=== PATIENT | male | born 1960 | race Caucasian/White ===

== ENCOUNTER 2017-07-16 14:57 | Emergency (ER) | payer MEDICARE, MEDICAID ==
[~2017-07-16] VITALS: Ht 177.8 cm; Wt 95.7 kg
[~2017-07-16 14:57] MED LIST: AMLO10TA59 PO; CLON-529 PO; DESV50TA3 PO; FENO145T25 PO; HYDR25TA4 PO; LORA0.5T PO; METO-395 PO; OMEG-107 PO; POTA10CA44 PO; TRAZ-146 PO; TRIF10TA PO; VALS320T13 PO
[2017-07-16 16:25] LABS: BASOPHILS # (AUTO) 0.1 X10'3 (0-0.2); BASOPHILS % (AUTO) 0.9 % (0-1); EOSINOPHILS # (AUTO) 0.1 X10'3 (0-0.9); EOSINOPHILS % (AUTO) 1.2 % (0-6); HEMATOCRIT 39.2 % (42.0-52.0); HEMOGLOBIN 13.6 g/dl (14.0-17.9); LYMPHOCYTES # (AUTO) 2.6 X10'3 (1.1-4.8); MEAN CORPUSCULAR HGB CONC 34.6 % (33.0-36.5); MEAN CORPUSCULAR VOLUME 86.8 FL (78-98); MEAN PLATELET VOLUME 8.4 FL (7.4-10.4); MONOCYTES # (AUTO) 0.6 X10'3 (0-0.9); MONOCYTES % (AUTO) 8.2 % (2-12); NEUTROPHILS # (AUTO) 4.1 X10'3 (1.8-7.7); NEUTROPHILS % (AUTO) 54.7 % (42-75); PLATELET COUNT 171 X10'3 (140-440); RED BLOOD COUNT 4.52 X10'6 (4.70-6.10); RED CELL DISTRIBUTION WIDTH 13.7 % (11.5-14.5); WHITE BLOOD COUNT 7.4 X10'3 (4.5-11.0)
[2017-07-16 16:58] LABS: ALANINE AMINOTRANSFERASE 45 U/L (12-78); ALBUMIN 3.9 G/DL (3.4-5.0); ALBUMIN/GLOBULIN RATIO 1.3 (1.1-1.5); ALKALINE PHOSPHATASE 84 IU/L (46-116); ANION GAP 12 (8-16); ASPARTATE AMINO TRANSFERASE 29 U/L (10-37); BILIRUBIN,TOTAL 0.5 MG/DL (0.1-1.0); BLOOD UREA NITROGEN 18 MG/DL (7-18); CALCIUM 8.8 MG/DL (8.5-10.1); CHLORIDE 106 MMOL/L (99-107); GLUCOSE 101 MG/DL (70-104); SODIUM 144 MMOL/L (135-145); TOTAL CARBON DIOXIDE 26.4 MMOL/L (24-32); eGFR 87 ML/MIN
[2017-07-16 17:02] LABS: ETHANOL < 0.010 GM/DL (0.0-0.010)
[2017-07-16 17:35] LABS: CLARITY,URINE Clear (Clear); COLOR,URINE Yellow (Yellow); GLUCOSE, URINE Negative (Neg); KETONES,URINE Negative (Neg); LEUKOCYTE ESTERASE ,URINE Negative (Neg); NITRITES, URINE Negative (Neg); OCCULT BLOOD,URINE Negative (Neg); PROTEIN,URINE Negative (Neg); UROBILINOGEN,URINE 0.2 E.U/dL (0.2-1.0)
[2017-07-16 17:44] LABS: UA COLLECTION TYPE CLN CATCH MIDSTREAM
[2017-07-16 17:45] LABS: URINE AMPHETAMINE SCREEN NEGATIVE (Neg); URINE BARBITUATE SCREEN NEGATIVE (Neg); URINE BENZODIAZEPINES SCREEN NEGATIVE (Neg); URINE CANNABINOID SCREEN NEGATIVE (Neg); URINE COCAINE SCREEN NEGATIVE (Neg); URINE METHADONE SCREEN NEGATIVE (Neg); URINE OPIATE SCREEN NEGATIVE (Neg); URINE PHENCYCLIDINE SCREEN NEGATIVE (Neg)
[2017-07-16] MEDS ORDERED: CLON-528 PO (17:52)
[2017-07-16] MEDS ORDERED: BUSP5TAB3 PO (17:52)
[2017-07-16] MEDS ORDERED: METO50TA7 PO (17:52)
[2017-07-16] MEDS ORDERED: QUET-1 PO (17:52)
[2017-07-16] MEDS ORDERED: SPIR25TA3 PO (17:52)
[2017-07-16] MEDS ORDERED: VENL75CA55 PO (17:52)
[2017-07-16] MEDS ORDERED: clonazePAM 0.5mg tablet PO PRN (18:25)
[2017-07-16] MEDS ORDERED: ibuprofen 200mg tablet PO PRN (19:40)
[2017-07-16] MEDS ORDERED: busPIRone 5mg tablet PO SCH (20:00)
[2017-07-16] MEDS ORDERED: quetiapine 100mg tablet PO SCH (21:00)
[2017-07-16 23:25] VITALS: BP 119/79
[2017-07-17] MEDS ORDERED: metoprolol succinate 25mg (24-HOUR) SR. Tablet PO SCH (08:00)
[2017-07-17] MEDS ORDERED: venlafaxine XR 75mg capsule (Q24H) PO SCH (08:00)
[2017-07-17] MEDS ORDERED: spironolactone 25 MG tablet PO SCH (08:00)
[2017-07-17] MEDS ORDERED: amLODIPine 5mg tablet PO SCH (08:00)
== END 2017-07-16 22:25 | disposition home or self-care (01) ==
LOC: ER 15:01
DX: F25.9 Schizoaffective disorder, unspecified (principal); E03.9 Hypothyroidism, unspecified; I10 Essential (primary) hypertension; F41.9 Anxiety disorder, unspecified; F32.9 Major depressive disorder, single episode, unspecified; Z79.899 Other long term (current) drug therapy
CPT/HCPCS: 36415; 80053; 80305; 80320; 81003; 84443; 85025; 96361; 96374; 96375; 99284; 99285

== ENCOUNTER 2017-07-16 21:00 | Inpatient (IN) | payer MEDICARE, MEDICAID ==
[~2017-07-16] VITALS: Ht 177.8 cm; Wt 95.7 kg
[~2017-07-16 21:00] MED LIST changes: +BUSP5TAB3 PO; +CLON-528 PO; +METO50TA7 PO; +QUET-1 PO; +SPIR25TA3 PO; +VENL75CA55 PO
[2017-07-16] MEDS ORDERED: clonazePAM 0.5mg tablet PO PRN (22:35)
[2017-07-16] MEDS: busPIRone 5mg tablet PO SCH (22:38)
[2017-07-16] MEDS ORDERED: quetiapine 100mg tablet PO SCH (22:39)
[2017-07-16] MEDS: omega-3 acid ethyl esters 1GM capsule PO SCH (22:39)
[2017-07-16 22:53] VITALS: BP 111/63
[2017-07-16] MEDS ORDERED: mag hydrox/Alum hydrox/simeth 30ml oral suspension PO PRN (23:05)
[2017-07-16] MEDS ORDERED: magnesium hydroxide 30ml (MOM) UD suspension PO PRN (23:05)
[2017-07-16] MEDS ORDERED: acetaminophen 325mg tablet PO PRN (23:05)
[2017-07-17] MEDS: metoprolol succinate 25mg (24-HOUR) SR. Tablet PO SCH (07:59)
[2017-07-17] MEDS: busPIRone 5mg tablet PO SCH ×2 (07:59→19:47)
[2017-07-17] MEDS: amLODIPine 5mg tablet PO SCH (07:59)
[2017-07-17] MEDS: omega-3 acid ethyl esters 1GM capsule PO SCH ×2 (07:59→19:48)
[2017-07-17] MEDS: spironolactone 25 MG tablet PO SCH (07:59)
[2017-07-17 08:00] VITALS: BP 131/77
[2017-07-17 09:00] LABS: HEMOGLOBIN A1C 5.4 % (4.5-6.2)
[2017-07-17 09:01] LABS: CHOL/HDL RATIO 3.7 (0.00-4.99); CHOLESTEROL 176 MG/DL (0-200); HDL CHOLESTEROL 47 MG/DL (35-60); LDL CHOLESTEROL 95 MG/DL (50-100); TRIGLYCERIDES 245 MG/DL (20-135)
[2017-07-17] MEDS: naproxen sodium 220mg tablet PO SCH ×2 (09:15→19:47)
[2017-07-17] MEDS: QUETIAPINE 150 MG TAB.SR.24H PO SCH (17:36)
[2017-07-17 19:55] VITALS: BP 119/71
[2017-07-18 07:03] VITALS: BP 127/82
[2017-07-18] MEDS: omega-3 acid ethyl esters 1GM capsule PO SCH ×2 (08:28→20:29)
[2017-07-18] MEDS: spironolactone 25 MG tablet PO SCH (08:28)
[2017-07-18] MEDS: naproxen sodium 220mg tablet PO SCH ×2 (08:28→20:00)
[2017-07-18] MEDS: metoprolol succinate 25mg (24-HOUR) SR. Tablet PO SCH (08:28)
[2017-07-18] MEDS: busPIRone 5mg tablet PO SCH ×2 (08:28→20:31)
[2017-07-18] MEDS: amLODIPine 5mg tablet PO SCH (08:29)
[2017-07-18 19:56] VITALS: BP 125/81
[2017-07-18] MEDS: QUETIAPINE 150 MG TAB.SR.24H PO SCH (20:31)
[2017-07-19 08:00] VITALS: BP 110/78
[2017-07-19] MEDS: busPIRone 5mg tablet PO SCH ×2 (08:01→20:33)
[2017-07-19] MEDS: amLODIPine 5mg tablet PO SCH (08:01)
[2017-07-19] MEDS: naproxen sodium 220mg tablet PO SCH ×2 (08:01→20:33)
[2017-07-19] MEDS: spironolactone 25 MG tablet PO SCH (08:01)
[2017-07-19] MEDS: metoprolol succinate 25mg (24-HOUR) SR. Tablet PO SCH (08:01)
[2017-07-19] MEDS: omega-3 acid ethyl esters 1GM capsule PO SCH ×2 (08:01→20:33)
[2017-07-19] MEDS ORDERED: QUEtiapine 25mg tablet PO ONE (10:25)
[2017-07-19] MEDS ORDERED: clonazePAM 0.5mg tablet PO PRN (10:25)
[2017-07-19] MEDS: QUETIAPINE 150 MG TAB.SR.24H PO SCH (18:40)
[2017-07-19 19:26] VITALS: BP 120/78
[2017-07-20 06:53] VITALS: BP 130/84
[2017-07-20 07:01] VITALS: BP 130/84
[2017-07-20] MEDS ORDERED: QUEtiapine 25mg tablet PO SCH (08:00)
[2017-07-20] MEDS: metoprolol succinate 25mg (24-HOUR) SR. Tablet PO SCH (08:12)
[2017-07-20] MEDS: spironolactone 25 MG tablet PO SCH (08:12)
[2017-07-20] MEDS: busPIRone 5mg tablet PO SCH (08:12)
[2017-07-20] MEDS: amLODIPine 5mg tablet PO SCH (08:12)
[2017-07-20] MEDS: omega-3 acid ethyl esters 1GM capsule PO SCH (08:12)
[2017-07-20] MEDS: naproxen sodium 220mg tablet PO SCH (08:12)
[2017-07-20] MEDS ORDERED: QUET300T3 PO (11:16)
[2017-07-20] MEDS ORDERED: NAPR220T67 PO (11:16)
[2017-07-20] MEDS ORDERED: QUET25TA34 PO (11:16)
[2017-07-20] MEDS ORDERED: BUSP10TA10 PO (11:16)
[2017-07-20] MEDS ORDERED: CLON0.5T4 PO (11:16)
== END 2017-07-20 13:00 | disposition home or self-care (01) | DRG 880 ==
LOC: ADULT MH 21:00
PROVIDERS: ADMIT Psychiatry & Neurology Psychiatry; ATTEND Psychiatry & Neurology Psychiatry
DX: F41.1 Generalized anxiety disorder (principal); K76.0 Fatty (change of) liver, not elsewhere classified; F22 Delusional disorders; F29 Unspecified psychosis not due to a substance or known physiological condition; I10 Essential (primary) hypertension; D64.9 Anemia, unspecified; F25.9 Schizoaffective disorder, unspecified; F12.90 Cannabis use, unspecified, uncomplicated; F17.210 Nicotine dependence, cigarettes, uncomplicated; Z79.899 Other long term (current) drug therapy; Z91.010 Allergy to peanuts
CPT/HCPCS: 36415; 80061; 83036; 84439; 84443; 84480; 87070